=== PATIENT | female | born 1965 | race Caucasian/White ===

== ENCOUNTER 2019-08-30 08:21 | Outpatient (CLI) | payer OTHER ==
[~2019-08-30 08:21] MED LIST: SYNTHROID125 MCG PO
== END 2019-08-30 17:00 | disposition home or self-care (01) ==
LOC: SONOGRAMA 08:21
DX: R10.84 Generalized abdominal pain (principal)

== ENCOUNTER 2020-10-23 12:49 | Outpatient (CLI) | payer OTHER | END 2020-10-23 13:20 | disposition home or self-care (01) | LOC: OFIC 805 12:49 | PROVIDERS: ATTEND Otolaryngology | DX: J31.0 Chronic rhinitis (principal); L29.8 Other pruritus; B48.8 Other specified mycoses; H61.21 Impacted cerumen, right ear ==

== ENCOUNTER → 2020-11-10 | Outpatient (CLI) | payer OTHER | END | disposition home or self-care (01) | LOC: OFIC 805 11:40 | PROVIDERS: ATTEND Otolaryngology | DX: J30.89 Other allergic rhinitis (principal); J31.0 Chronic rhinitis; L29.8 Other pruritus; B48.8 Other specified mycoses ==

== ENCOUNTER 2023-08-17 18:16 | Inpatient (IN) | payer OTHER ==
[~2023-08-17] VITALS: Ht 167.6 cm; Wt 95.3 kg
[2023-08-17] MEDS ORDERED: LEVO-T175 MCG PO (19:01)
[2023-08-17] MEDS ORDERED: TOPROL XL50 M1 PO (19:01)
[2023-08-17] MEDS ORDERED: IRBESARTAN-HCT1 EAC1 PO (19:01)
[2023-08-17] MEDS ORDERED: LODINE300 MG PO (19:02)
[2023-08-17] MEDS ORDERED: LIPITOR80 MG (19:02)
[2023-08-17] MEDS ORDERED: METFORMIN HCL500 MG (19:02)
[2023-08-17 21:06] LABS: HEMATOCRIT 42.1 % (36.0-45.00); HEMOGLOBIN 13.6 g/dL (12.0-15.00); MEAN CELL VOLUME 85.6 fL (80.00-100.00); MEAN CORPUSCULAR HEMOGLOBIN 27.7 pg (27.00-32.0); MEAN CORPUSCULAR HGB CONC 32.4 g/dl (32.0-36.0); PLATELET COUNT 282 K/uL (150-450); RED BLOOD COUNT 4.91 M/uL (4.00-6.00)
[2023-08-17 22:02] LABS: CREATININE SERUM 0.64 mg/dL (0.55-1.02); GFR 94.98; POTASSIUM 3.56 mEq/L (3.5-5.1)
[2023-08-17 23:12] LABS: PH,URINE 6.5 (5.0-8.0); URINE APPEARANCE Clear; URINE BILIRRUBIN Negative (NEGATIVE); URINE BLOOD Negative; URINE COLOR Yellow; URINE GLUCOSE Negative (NEGATIVE); URINE LEUKOCYTE Trace; URINE NITRATE Negative; URINE PROTEIN Negative (NEGATIVE); URINE UROBILINOGEN 0.2 E.U./dl
[2023-08-17 23:15] LABS: URINE BACTERIA 1226.9 uL (0.0-1933); URINE EPITHELIAL CELLS 20.5 uL (0.0-38.8); URINE WBC 26.7 uL (0.0-23.2)
[2023-08-17 23:39] LABS: URINE EPITHELIAL CELLS 0-4 /HPF
[2023-08-18 00:41] LABS: INR 1.09; PROTHROMBIN TIME 11.4 SECONDS (9.0-11.5)
[2023-08-19 06:46] LABS: HEMATOCRIT 34.4 % (36.0-45.00); MEAN CELL VOLUME 86.4 fL (80.00-100.00); MEAN CORPUSCULAR HEMOGLOBIN 27.6 pg (27.00-32.0); MEAN CORPUSCULAR HGB CONC 31.9 g/dl (32.0-36.0); PLATELET COUNT 213 K/uL (150-450); RED BLOOD COUNT 3.98 M/uL (4.00-6.00); RED CELL DISTRIBUTION WIDTH 14.5 % (11.5-14.5)
[2023-08-19 06:53] LABS: ALBUMIN 2.5 gm/dL (3.4-5.0); BILIRUBIN TOTAL 0.81 mg/dL (0.3-1.2); CALCIUM 7.9 mg/dL (8.5-10.1); CREATININE SERUM 0.52 mg/dL (0.55-1.02); GFR 120.69; GLOBULINA 3.1 G/DL (2.4-3.5); POTASSIUM 3.99 mEq/L (3.5-5.1); TOTAL PROTEIN 5.6 gm/dL (6.4-8.2)
[2023-08-19 22:08] LABS: ALBUMIN 2.4 gm/dL (3.4-5.0); BILIRUBIN TOTAL 0.72 mg/dL (0.3-1.2); CALCIUM 7.8 mg/dL (8.5-10.1); CREATININE SERUM 0.48 mg/dL (0.55-1.02); GFR 132.37; POTASSIUM 3.38 mEq/L (3.5-5.1); TOTAL PROTEIN 5.4 gm/dL (6.4-8.2)
[2023-08-20 07:38] LABS: HEMATOCRIT 33.6 % (36.0-45.00); HEMOGLOBIN 11.3 g/dL (12.0-15.00); MEAN CELL VOLUME 84.6 fL (80.00-100.00); MEAN CORPUSCULAR HEMOGLOBIN 28.5 pg (27.00-32.0); MEAN CORPUSCULAR HGB CONC 33.7 g/dl (32.0-36.0); PLATELET COUNT 230 K/uL (150-450); RED BLOOD COUNT 3.97 M/uL (4.00-6.00); RED CELL DISTRIBUTION WIDTH 14.5 % (11.5-14.5)
== END 2023-08-23 14:09 | disposition home or self-care (01) | DRG 872 ==
LOC: ER 18:17 → MEDI 08-18 00:01
PROVIDERS: General Practice; Nurse Practitioner Family; ADMIT Specialist; ATTEND Specialist
PROC: BW21ZZZ Computerized Tomography (CT Scan) of Abdomen and Pelvis (ICD-10-PCS; principal; 2023-08-18)
DX: A41.9 Sepsis, unspecified organism (principal); K57.32 Diverticulitis of large intestine without perforation or abscess without bleeding; I10 Essential (primary) hypertension; E11.9 Type 2 diabetes mellitus without complications; Z79.4 Long term (current) use of insulin; E66.01 Morbid (severe) obesity due to excess calories; Z68.33 Body mass index [BMI] 33.0-33.9, adult; B96.89 Other specified bacterial agents as the cause of diseases classified elsewhere